=== PATIENT | female | born 1985 | race Caucasian/White ===

== ENCOUNTER 2018-04-23 12:01 | Emergency (ER) | payer SELFPAY ==
[~2018-04-23] VITALS: Ht 167.6 cm; Wt 60.1 kg
[2018-04-23 12:06] VITALS: BP 113/67
[2018-04-23] MEDS ORDERED: TYLENOL WITH C1 EACH PO (18:42)
[2018-04-23] MEDS ORDERED: PEN-VEE K,VEET500 MG PO (18:42)
== END 2018-04-23 13:56 | disposition left against medical advice (07) ==
LOC: EME 12:01
DX: K08.89 Other specified disorders of teeth and supporting structures (principal); Z53.21 Procedure and treatment not carried out due to patient leaving prior to being seen by health care provider

== ENCOUNTER 2018-04-23 17:00 | Emergency (ER) | payer SELFPAY ==
[~2018-04-23] VITALS: Ht 167.6 cm; Wt 60.6 kg
[2018-04-23] MEDS ORDERED: PEN-VEE K,VEET500 MG PO (18:42)
[2018-04-23] MEDS ORDERED: TYLENOL WITH C1 EACH PO (18:42)
[2018-04-23 18:56] VITALS: BP 119/74
== END 2018-04-23 18:56 | disposition home or self-care (01) ==
LOC: EME 17:00
PROC: 3E0T3BZ Introduction of Anesthetic Agent into Peripheral Nerves and Plexi, Percutaneous Approach (ICD-10-PCS; principal; 2018-04-23)
DX: K08.89 Other specified disorders of teeth and supporting structures (principal); F17.200 Nicotine dependence, unspecified, uncomplicated
CPT/HCPCS: 99281; 99283